=== PATIENT | female | born 2005 | race Two or more races ===

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

== ENCOUNTER 2023-10-10 14:14 | Emergency (ER) | payer OTHER ==
[2023-10-10] MEDS ORDERED: ONDANSETRON 4 MG/2 ML VIAL ONE (14:47)
[2023-10-10 14:52] VITALS: BP 108/70; PULSE 83; RESP 20; TEMP 98.2; BMI 24.1
[2023-10-10 15:23] LABS: HEMATOCRIT 44.6 % (32.4-45.2); HEMOGLOBIN 14.8 G/dL (10.7-15.3); MCH 28.2 pg (25.7-33.7); MCHC 33.1 g/dl (32.0-36.0); MEAN CELL VOLUME 85.1 fl (80-96); MEAN PLT VOLUME 10.3 fl (7.5-11.1); PLATELET COUNT 177.8 10^3/uL (134-434); RBC 5.24 10^6/uL (3.60-5.2); RDW 14.4 % (11.6-15.6); WHITE BLOOD COUNT 9.4 10^3/uL (4.0-10.8)
[2023-10-10 15:30] LABS: ALBUMIN 4.6 g/dl (3.4-5.0); ALK PHOS 61 U/L (45-117); ANION GAP 10 mmol/L (4-13); CALCIUM 9.5 mg/dl (8.5-10.1); CHLORIDE 101 mmol/L (98-107); CO2 26 mmol/L (21-32); CREATININE 0.7 mg/dl (0.6-1.3); GLUCOSE,RANDOM 89 mg/dl (74-106); POTASSIUM 4.4 mmol/L (3.5-5.1); SGOT/AST 23 U/L (15-37); SGPT/ALT 13 U/L (7-52); SODIUM 137 mmol/L (136-145); TOT PROT 7.3 g/dl (6.4-8.2)
[2023-10-10] MEDS: SODIUM CHLORIDE 0.9% 1000 ML INFUS.BAG IV ONE (15:35)
[2023-10-10] MEDS: ACETAMINOPHEN 1000 MG/100 ML BAG IVPB ONE (15:36)
[2023-10-10] MEDS: ONDANSETRON 4 MG/2 ML VIAL IVPUSH ONE (15:36)
[2023-10-10] MEDS ORDERED: ACETAMINOPHEN INJECTION 100 ML IVPB ONE (15:37)
[2023-10-10 16:28] LABS: PLATELET ESTIMATE ADEQUATE
== END 2023-10-10 16:38 | disposition home or self-care (01) ==
LOC: FER 14:14
PROC: 3E033NZ Introduction of Analgesics, Hypnotics, Sedatives into Peripheral Vein, Percutaneous Approach (ICD-10-PCS; principal; 2023-10-10)
PROC: 3E033GC Introduction of Other Therapeutic Substance into Peripheral Vein, Percutaneous Approach (ICD-10-PCS; 2023-10-10)
DX: A08.4 Viral intestinal infection, unspecified (principal); R11.2 Nausea with vomiting, unspecified; M79.10 Myalgia, unspecified site; R51.9 Headache, unspecified
CPT/HCPCS: 36415; 80053; 85027; 99284-25; J0131

== ENCOUNTER 2024-01-26 21:50 | Emergency (ER) | payer OTHER ==
[2024-01-26 22:00] VITALS: BP 113/68; PULSE 78; RESP 18; TEMP 99.3; BMI 25.7
[2024-01-26 23:35] LABS: HEMATOCRIT 36.5 % (32.4-45.2); HEMOGLOBIN 11.9 G/dL (10.7-15.3); MCH 27.4 pg (25.7-33.7); MCHC 32.7 g/dl (32.0-36.0); MEAN PLT VOLUME 9.5 fl (7.5-11.1); PLATELET COUNT 202.1 10^3/uL (134-434); RBC 4.35 10^6/uL (3.60-5.2); RDW 14.5 % (11.6-15.6); WHITE BLOOD COUNT 7.8 10^3/uL (4.0-10.8)
[2024-01-26 23:42] LABS: PLATELET ESTIMATE ADEQUATE
[2024-01-26 23:58] LABS: ALBUMIN 4.2 g/dl (3.4-5.0); BILIRUBIN,TOTAL 0.7 mg/dl (0.2-1); CALCIUM 9.2 mg/dl (8.5-10.1); CREATININE 0.8 mg/dl (0.6-1.3); TOT PROT 6.4 g/dl (6.4-8.2)
== END 2024-01-27 01:04 | disposition home or self-care (01) ==
LOC: FER 21:50
DX: K59.00 Constipation, unspecified (principal); K64.9 Unspecified hemorrhoids
CPT/HCPCS: 36415; 80053; 84703; 85025; 99283-25